=== PATIENT | male | born 1960 | race American Indian/Alaskan Native ===

== ENCOUNTER 2021-12-21 07:53 | Emergency (ER) | payer MEDICARE, OTHER ==
[2021-12-21 08:26] VITALS: BP 153/80
--- NOTE | 2021-12-21 11:19 | Emergency Department Report ---
ED Recheck HPI - General Chief Complaint: Medical Clearance Stated Complaint: HBP Time Seen by Provider: 12/21/21 10:44 Source: patient Mode of arrival: Ambulatory Limitations: No Limitations - History of Present Illness Initial Comments: 61-year-old black male with a past medical history of hypertension and end-stage renal disease on HD Wednesday presents to the emergency department requesting refill of medication. He states that he recently changed doctors and has not had a chance to make a new appointment so that he can get a refill of his medications. He denies chest pain, shortness of breath, dizziness, nausea, vomiting, abdominal pain, fever, and diaphoresis. MD Complaint: medication refill request Returns Today for: request for prescription Symptoms Since Prior Visit: no new symptoms Associated Symptoms: none - Related Data Previous Rx's Medication Instructions Recorded Last Taken Type Furosemide [Lasix] 80 mg PO DAILY #60 tab 12/21/21 Unknown Rx amLODIPine 10 mg PO DAILY #30 tab 12/21/21 Unknown Rx ED Review of Systems ROS: Stated complaint: HBP Other details as noted in HPI Comment: All other systems reviewed and negative Constitutional: denies: chills, fever, weakness Eyes: denies: vision change Respiratory: denies: shortness of breath Cardiovascular: denies: chest pain, palpitations Gastrointestinal: denies: abdominal pain, nausea, vomiting Musculoskeletal: denies: back pain Neurological: denies: headache, weakness ED Past Medical Hx - Past Medical History Hx Hypertension: Yes Hx Renal Disease: Yes (HD ,,Wed) - Surgical History Additional Surgical History: R knee, AV fistula L arm - Medications Home Medications: Home Medications Medication Instructions Recorded Confirmed Last Taken Type Furosemide [Lasix] 80 mg PO DAILY #60 tab 12/21/21 Unknown Rx amLODIPine 10 mg PO DAILY #30 tab 12/21/21 Unknown Rx ED Physical Exam - General Limitations: No Limitations General appearance: alert, in no apparent distress - Head Head exam: Present: atraumatic, normocephalic - Eye Eye exam: Present: normal appearance. Absent: conjunctival injection, periorbital swelling, periorbital tenderness - ENT ENT exam: Present: normal exam - Neck Neck exam: Present: normal inspection, full ROM. Absent: tenderness, lymphadenopathy - Respiratory Respiratory exam: Present: normal lung sounds bilaterally. Absent: respiratory distress, wheezes, rales, rhonchi, stridor, chest wall tenderness - Cardiovascular Cardiovascular Exam: Present: regular rate, normal heart sounds - GI/Abdominal GI/Abdominal exam: Present: soft, normal bowel sounds. Absent: distended, t enderness, guarding, rebound, rigid - Extremities Exam Extremities exam: Present: normal inspection, full ROM, normal capillary refill. Absent: pedal edema, joint swelling, calf tenderness - Back Exam Back exam: Present: normal inspection. Absent: CVA tenderness (R), CVA tenderness (L) - Neurological Exam Neurological exam: Present: alert, oriented X3, CN II-XII intact, normal gait - Psychiatric Psychiatric exam: Present: normal affect, normal mood - Skin Skin exam: Present: warm, dry, intact, normal color ED Course Vital Signs 12/21/21 08:22 Temperature 97.7 F Pulse Rate 62 Respiratory 18 Rate Blood Pressure 153/80 [Left] O2 Sat by Pulse 100 Oximetry ED Recheck MDM - Differential Diagnosis Prescription Refill(s) - Medical Decision Making Patient was given a refill of amlodipine and Lasix along with name of a primary care provider on this side of [facility] that he can follow-up with for further evaluation and management. He verbalizes understanding of and agreement with plan of care. Critical care attestation.: If time is entered above; I have spent that time in minutes in the direct care of this critically ill patient, excluding procedure time. ED Disposition Clinical Impression: Medication refill Disposition: HOME / SELF CARE / HOMELESS Is pt being admited?: No Does the pt Need Aspirin: No Condition: Stable Additional Instructions: Take medication as prescribed follow-up with your primary care provider for further evaluation and management. Return to the emergency department as needed. Prescriptions: amLODIPine 10 mg PO DAILY #30 tab Furosemide [Lasix] 80 mg PO DAILY #60 tab Referrals: TRUDY MELCHOR MD [Staff Physician] - 3-5 Days Time of Disposition: 11:18
== END 2021-12-21 11:30 | disposition home or self-care (01) ==
LOC: ED 07:53
DX: I10 Essential (primary) hypertension (principal); Z76.0 Encounter for issue of repeat prescription; Z79.899 Other long term (current) drug therapy
CPT/HCPCS: 99282